=== PATIENT | female | born 1930 | race Caucasian/White ===

== ENCOUNTER 2017-11-18 09:05 | Emergency (ER) | payer MEDICARE, OTHER ==
[~2017-11-18] VITALS: Ht 157.5 cm; Wt 68.5 kg
[~2017-11-18 09:05] MED LIST: AMARYL4 MG PO; ARICEPT ODT5 MG PO; ARICEPT5 MG PO; ARTHROTEC EC 51 EACH PO; ATIVAN0.5 MG PO; CARAFATE1 GM PO; DEPAKOTE125 MG PO; HYDROXYZINE HCL10 MG PO; LEVOTHYROXINE50 MCG PO; LIPITOR10 MG PO; MELATONIN 3 MG1 EACH PO; METFORMIN HCL500 MG PO; MINOCYCLINE HCL50 MG PO; MIRALAX17 GM PO; NORCO 5-325 TA1 EACH PO; PANTOPRAZOLE SO40 MG PO; SENOKOT-S TABL1 EACH PO; SEROQUEL25 MG PO; VALIUM2 MG; ZOFRAN2 MG/1 ML IM
--- NOTE | 2017-11-18 10:21 | Diagnostic Imaging Report ---
EXAMINATION: Head and cervical spine CT without contrast. HISTORY: Status post fall, trauma, pain COMPARISON: Head CT and 05/19/2014 TECHNIQUE: Multidetector axial images were obtained without contrast from the foramen magnum to the vertex and through the cervical spine. The images were reconstructed using brain and bone algorithms. Thin section brain images were reformatted into coronal and sagittal planes. HEAD CT FINDINGS: Skull: Left frontal scalp swelling/hematoma without underlying fractures. 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 -Mild periventricular matter hypodensities, nonspecific unremarkable changes. -No mass, hemorrhage or CT evidence of acute vascular insult. Brain volume: Generalized parenchymal volume with mild bilateral medial temporal predominance. Ventricles: No hydrocephalus or displacement. Arteries: No density suggestive of thrombus. Dural sinuses: No abnormal density. Extra-axial spaces: No abnormal density. Foramen magnum: No mass, Chiari malformation, or basilar invagination. Sella: No obvious mass. Paranasal/mastoid sinuses: Imaged portions unremarkable. CERVICAL SPINE CT FINDINGS: Alignment:Normal alignment and lordosis. Soft tissues: Normal. Vertebrae: Normal height and density. No acute fracture, infection or neoplasm. Degenerative changes: C1-C2: Normal. C2-C3: Uncovertebral and facet arthrosis without canal or foraminal stenosis. C3-C4: Bilateral uncovertebral and facet arthrosis without stenosis. C4-C5: Uncovertebral and facet arthrosis mainly on the left without canal or foraminal stenosis. C5-C6: Uncovertebral and facet arthrosis. Mild foraminal stenosis mainly on the left. C6-C7: Uncovertebral and facet arthrosis without canal or foraminal stenosis. C7-T1: Normal. IMPRESSION: Head CT: 1. Left frontal scalp swelling/hematoma without underlying fractures 2. No acute posttraumatic intracranial abnormalities, particularly no hemorrhage. 3. 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 Cervical spine CT: 1. No acute fractures or dislocations. 2. Chronic degenerative changes as described. Note: Acute post traumatic spinal cord, vascular or ligamentous injury cannot adequately be assessed with CT. Signed by: Dr. Livia Ng M.D. on 11/18/2017 10:17 AM
[2017-11-18 10:34] VITALS: BP 140/85
== END 2017-11-18 10:41 | disposition home or self-care (01) ==
LOC: ER 09:05
DX: S00.83XA Contusion of other part of head, initial encounter (principal); S00.81XA Abrasion of other part of head, initial encounter; W06.XXXA Fall from bed, initial encounter; Y93.84 Activity, sleeping; Y92.128 Other place in nursing home as the place of occurrence of the external cause; F03.90 Unspecified dementia, unspecified severity, without behavioral disturbance, psychotic disturbance, mood disturbance, and anxiety; I10 Essential (primary) hypertension; E11.9 Type 2 diabetes mellitus without complications; E78.5 Hyperlipidemia, unspecified
CPT/HCPCS: 70450; 72125; 99283

== ENCOUNTER 2019-11-15 07:44 | Observation (INO) | payer MEDICARE, OTHER ==
[~2019-11-15] VITALS: Ht 154.9 cm; Wt 78.9 kg
[2019-11-15] MEDS ORDERED: ONDANSETRON HCL INJ 2MG/ML 2ML 2 MG/ML VIAL IV NR (07:54)
[2019-11-15] MEDS ORDERED: SODIUM CHLORIDE 0.9% 500ML 500 ML IV ONE (08:00)
--- NOTE | 2019-11-15 08:25 | NUR ---
Pt reports is 1930 per patient's daughter Mrs. Alex Kirkpatrick (POA) she states that there was a mix up several years ago, pt lost her certificate and stated that when she received it it had 1930, daughter states "It was changed by her mother." All paperwork from [facility] states 1930, pt daughter verified that that has been the she uses, pt was treated here several times over the past years with 1930.
[2019-11-15] MEDS ORDERED: PANTOPRAZOLE 40 MG 10ML VIAL IV NR (08:30)
--- NOTE | 2019-11-15 09:17 | Diagnostic Imaging Report ---
CT BRAIN WO HISTORY: Syncope COMPARISON: Head CT 11/18/2017 Technique: Noncontrast axial scans were obtained from skull base to the vertex. Coronal and sagittal reconstructions obtained from the axial data. One or more of the following dose reduction techniques were used: Automated exposure control, adjustment of the mA and/or kV according to patient size, and/or utilization of iterative reconstruction technique. DISCUSSION: Scalp/Skull: Unremarkable. Brain sulci: Mildly prominent. Ventricles: Compensatory dilatation. Extra-axial spaces: No masses or fluid collections. Carotid siphon calcifications are present. Parenchyma: Mild bilateral deep white matter hypodensity is likely chronic microvascular ischemic change. 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 Dural sinuses: No abnormal densities. Sellar/Suprasellar region: Intact. Skull base: Intact. Incidental findings: None. IMPRESSION: 1. No acute intracranial abnormalities. 2. Old right occipital infarct. 3. Mild supratentorial chronic microvascular ischemic change. Generalized cerebral volume loss. Signed by: Dr. Phill Gaytan M.D. on 11/15/2019 9:14 AM
--- NOTE | 2019-11-15 09:19 | Diagnostic Imaging Report ---
EXAMINATION: CHEST SINGLE (PORTABLE) INDICATION: Syncope COMPARISON: Chest radiograph 08/29/2014 FINDINGS: LINES/TUBES:Left chest pacer. EKG leads overlie the chest. LUNGS:The lung volumes are low. No focal consolidation or pulmonary edema. Persistent elevation of the right hemidiaphragm. Mild left basilar patchy opacities, likely subsegmental atelectasis. Unchanged right midlung calcified granuloma. PLEURA:No pleural effusion or pneumothorax. MEDIASTINUM:The cardiomediastinal silhouette appears normal in size and shape. Atherosclerotic calcifications of the thoracic aorta. BONES/SOFT TISSUES:No acute osseous injury. Increased acromioclavicular interval on the left, also present in 2014, suggests chronic left acromioclavicular injury. Postoperative findings of right rotator cuff repair. ABDOMEN:No free air under the diaphragm. IMPRESSION: Low lung volumes. No focal pneumonia or pulmonary edema. Left basilar opacities, most likely subsegmental atelectasis. Persistent right hemidiaphragm elevation. Signed by: Katarzyna Heard MD on 11/15/2019 9:17 AM
[2019-11-15 09:57] LABS: HEMATOCRIT 43.5 % (34.2-44.1); HEMOGLOBIN 14.3 g/dL (12.0-16.0); MEAN CORPUSCULAR VOLUME 95.2 fL (81-99); RED BLOOD COUNT 4.57 x10e6/uL (3.6-5.1)
[2019-11-15 09:58] LABS: BASOPHILS % 1.1 % (0.0-1.0); EOSINOPHILS % 2.6 % (0.0-6.0); LYMPHOCYTES % 16.5 % (18.0-39.1); MEAN CORPUSCULAR HEMOGLOBIN 31.3 pg (28-32); MEAN CORPUSCULAR HGB CONC 32.9 g/dL (31-35); MONOCYTES % 9.9 % (4.4-11.3); NEUTROPHILS % 69.4 % (38.7-80.0); PLATELET COUNT 311 x10e3/uL (140-360); RED CELL DISTRIBUTION WIDTH 13.5 % (11.7-14.4)
[2019-11-15 09:59] LABS: BASOPHILS # (AUTO) 0.1 (0.0-0.1); EOSINOPHILS # (AUTO) 0.1 (0.0-0.4); LYMPHOCYTES # (AUTO) 0.9 (1.0-3.2); MONOCYTES # (AUTO) 0.5 (0.2-0.8); NEUTROPHILS # (AUTO) 3.8 (2.1-6.9)
[2019-11-15] MEDS ORDERED: ONDANSETRON HCL INJ 2MG/ML 2ML 2 MG/ML VIAL IV PRN (10:15)
[2019-11-15 10:34] LABS: INR 1.1; PARTIAL THROMBOPLASTIN TIME 26.9 seconds (23.8-35.5); PROTHROMBIN TIME 14.5 seconds (11.9-14.5)
[2019-11-15] MEDS ORDERED: AZITHROMYCIN 500MG/NS 250 ML 250 ML IV SCH (11:00)
[2019-11-15] MEDS ORDERED: FAMOTIDINE 20 MG/2 ML VIAL IV SCH (11:00)
[2019-11-15] MEDS ORDERED: CEFEPIME 1GM/NS 0.9% 50 ML 50 ML IV SCH (12:00)
[2019-11-15 12:45] LABS: ALBUMIN 3.3 g/dL (3.5-5.0); ALBUMIN/GLOBULIN RATIO 0.9 (0.8-2.0); ANION GAP 12.7 mmol/L (8-16); CALCIUM 9.3 mg/dL (8.4-10.2); CREATININE, SERUM 1.7 mg/dL (0.57-1.11); MAGNESIUM 1.9 MG/DL (1.3-2.1); POTASSIUM 4.7 mmol/L (3.5-5.1)
[2019-11-15 12:52] LABS: CREATINE KINASE MB 1.4 ng/mL (0-5.0)
[2019-11-15] MEDS ORDERED: LORAZEPAM 0.5 MG TAB PO PRN (14:15)
[2019-11-15] MEDS ORDERED: HYDROXYZINE HCL 10 MG TAB PO PRN (14:15)
[2019-11-15] MEDS ORDERED: QUETIAPINE FUMARATE 25 MG TAB PO PRN ×2 (14:15)
[2019-11-15 14:25] LABS: CLARITY,URINE SL CLOUDY (CLEAR); COLOR,URINE YELLOW (YELLOW); LEUKOCYTE ESTERASE ,URINE SMALL (NEGATIVE); NITRITE,URINE NEGATIVE (NEGATIVE); PROTEIN,URINE DIPSTICK 1+ (NEGATIVE)
[2019-11-15 14:26] LABS: KETONES,URINE NEGATIVE (NEGATIVE); URINE UROBILINOGEN 0.2 mg/dL (0.2 - 1)
[2019-11-15 14:27] LABS: BILIRUBIN,URINE NEGATIVE (NEGATIVE)
[2019-11-15 14:32] LABS: BACTERIA,URINE MANY /HPF; EPITHELIAL CELLS,URINE MODERATE /LPF
[2019-11-15] MEDS ORDERED: ACETAMINOPHEN 325 MG TAB PO PRN (14:45)
[2019-11-15] MEDS ORDERED: ONDANSETRON HCL INJ 2MG/ML 2ML 2 MG/ML VIAL IM PRN (15:00)
--- NOTE | 2019-11-15 15:15 | NUR ---
RCD PT FROM ER BY BED PT IS ALERT AND ORIENTED VITALS CHECKED PT RESTING ON BED ADMISSION ASSESSMENT AND HISTORY DONE IV PATENT BY SALINE FLUSH AND CONNECTED IV NS 100 ML /HR FAMILY AT BED SIDE INSTRUCTED THE PT AND FAMILY REGARDING HOSPITAL POLICY AND ROUTINE BED LOW AND LOCKED CALL LIGHT IN REACH
--- NOTE | 2019-11-15 15:38 | Diagnostic Imaging Report ---
EXAM: CT Chest WITHOUT intravenous contrast 11/15/2019 2:28 PM INDICATION: Lung nodule COMPARISON: Chest radiograph of the same day TECHNIQUE: Chest was scanned utilizing a multidetector helical scanner from the lung apex through the level of the adrenal glands without administration of IV contrast. Coronal and sagittal reformations were obtained. Routine protocol was performed. IV CONTRAST: None RADIATION DOSE: Total DLP: 465.2 mGy*cm. Dose modulation, iterative reconstruction, and/or weight based adjustment of the mA/kV was utilized to reduce the radiation dose to as low as reasonably achievable. COMPLICATIONS: None FINDINGS: LINES/ TUBES: Left chest pacer. LUNGS AND AIRWAYS: The central airways are patent. No focal consolidation or pulmonary edema. 10 mm right upper lobe calcified granuloma, essentially unchanged compared to radiographs dating back to 05/19/2014. Dependent left greater than right bibasilar subsegmental atelectasis. PLEURA: The pleural spaces are clear. HEART AND MEDIASTINUM: The thyroid gland is normal. No supraclavicular or is not a lymphadenopathy. Small calcified right hilar lymph nodes. The heart is not enlarged. No pericardial effusion. Scattered coronary artery atherosclerotic calcifications. Atherosclerotic calcifications involve the thoracic aorta and proximal great vessels. UPPER ABDOMEN: No acute findings. Scattered calcified granulomas throughout the liver and spleen. Small sliding hiatal hernia. BONES: No acute osseous injury. No suspicious lytic or blastic lesions. Degenerative changes of the visualized spine. SOFT TISSUES: Unremarkable. IMPRESSION: No focal pneumonia or pulmonary edema. Sequela of prior granulomatous disease including a right upper lobe calcified granuloma (unchanged dating back to 2013), right calcified hilar lymph nodes, and calcified granulomas in the liver and spleen. Scattered atherosclerotic calcifications including of the coronary arteries. Signed by: Katarzyna Heard MD on 11/15/2019 3:35 PM
[2019-11-15 16:05] VITALS: BP 127/59
[2019-11-15] MEDS: SUCRALFATE 1 GM TAB PO SCH (16:30)
[2019-11-15] MEDS: DONEPEZIL HCL 5 MG TAB PO SCH (16:30)
[2019-11-15] MEDS: SODIUM CHLORIDE 0.9% 1000ML 1,000 ML IV SCH (16:30)
[2019-11-15] MEDS ORDERED: MISOPROSTOL PO SCH (17:00)
[2019-11-15] MEDS ORDERED: DICLOFENAC SODIUM PO SCH (17:00)
[2019-11-15] MEDS ORDERED: METFORMIN HCL 500 MG TAB PO SCH (17:00)
[2019-11-15] MEDS: DIVALPROEX SODIUM 125 MG TABDR...ER PO SCH (17:00)
[2019-11-15] MEDS ORDERED: [UNRECOGNIZED DRUG - OTHER] PO SCH (17:00)
[2019-11-15] MEDS: MINOCYCLINE HCL 50 MG CAP PO SCH (17:22)
[2019-11-15 17:33] VITALS: BP 127/59
[2019-11-15 17:46] VITALS: BP 127/59
[2019-11-15 18:40] LABS: CREATINE KINASE MB 1.4 ng/mL (0-5.0)
--- NOTE | 2019-11-15 18:41 | NUR ---
PT RESTING ON BED BED SIDE REPORT GIVEN TO ONCOMING NURSE
--- OUTSIDE RECORDS SUMMARY | 2019-11-15 19:34 | XMS REPORT ---
Author Author [facility] Address Unknown Phone Unavailable Care Team Providers Care Aircraft Instrument Tester Name Role Phone JOLEEN SANDERS Unavailable Unavailable Kain WOOD Unavailable Unavailable Problems This patient has no known problems. Allergies, Adverse Reactions, Alerts This patient has no known allergies or adverse reactions. Medications This patient has no known medications. Results Test Description Test Time Test Comments Text Results Atomic Results Result Comments CT CHEST WO 2019-11-15 15:30:00 [place] [address] Patient Name: SERGIO PARISH MR #: [id number] : 1930 Age/Sex: 89/F Req #: [id number] Adm Physician: JOLEEN SANDERS MD Ordered by: JOLEEN SANDERS MD Report #: [id number] Location: [facility] Room/Bed: [place] [address] Procedure: [id number] CT/CT CHEST WO Exam Date: 11/15/19 Exam Time: 1500 REPORT STATUS: Signed EXAM: CT Chest WITHOUT intravenous contrast 11/15/2019 2:28 PM INDICATION: Lung nodule COMPARISON: Chest radiograph of the same day TECHNIQUE: Chest was scanned utilizing a multidetector helical scanner from the lung apex through the level of the adrenal glands without administration of IV contrast. Coronal and sagittal reformations were obtained. Routine protocol was performed. IV CONTRAST: None RADIATION DOSE: Total DLP: 465.2 mGy*cm. Dose modulation, iterative reconstruction, and/or weight based adjustment of the mA/kV was utilized to reduce the radiation dose to as low as reasonably achievable. COMPLICATIONS: None FINDINGS: LINES/ TUBES: Left chest pacer. LUNGS AND AIRWAYS: The central airways are patent. No focal consolidation or pulmonary edema. 10 mm right upper lobe calcified granuloma, essentially unchanged compared to radiographs dating back to 05/19/2014. Dependent left greater than right bibasilar subsegmental atelectasis. PLEURA: The pleural spaces are clear. HEART AND MEDIASTINUM: The thyroid gland is normal. No supraclavicular or is not a lymphadenopathy. Small calcified right hilar lymph nodes. The heart is not enlarged. No pericardial effusion. Scattered coronary artery atherosclerotic calcifications. Atherosclerotic calcifications involve the thoracic aorta and proximal great vessels. UPPER ABDOMEN: No acute findings. Scattered calcified granulomas throughout the liver and spleen. Small sliding hiatal hernia. BONES: No acute osseous injury. No suspicious lytic or blastic lesions. Degenerative changes of the visualized spine. SOFT TISSUES: Unremarkable. IMPRESSION: No focal pneumonia or pulmonary edema. Sequela of prior granulomatous disease including a right upper lobe calcified granuloma (unchanged dating back to 2013), right calcified hilar lymph nodes, and calcified granulomas in the liver and spleen. Scattered atherosclerotic calcifications including of the coronary arteries. Signed by: Neelam Woods MD on 11/15/2019 3:35 PM Dictated By: NEELAM WOODS MD 1535 Transcribed By: ANDRIY on 11/15/19 1535 COPY TO: JOLEEN SANDERS MD CHEST SINGLE (PORTABLE) 2019-11-15 09:14:00 [place] [address] Patient Name: SERGIO PARISH MR #: [id number] : 1930 Age/Sex: 89/F Req #: [id number] Adm Physician: Ordered by: LORNA HOSKINS MD Report #: [id number] Location: ER Room/Bed: Procedure: [id number] DX/CHEST SINGLE (PORTABLE) Exam Date: 11/15/19 Exam Time: 0853 REPORT STATUS: Signed EXAMINATION: CHEST SINGLE (PORTABLE) INDICA TION: Syncope COMPARISON: Chest radiograph 08/29/2014 FINDINGS: LINES/TUBES:Left chest pacer. EKG leads overlie the chest. LUNGS:The lung volumes are low. No focal consolidation or pulmonary edema. Persistent elevation of the right hemidiaphragm. Mild left basilar patchy opacities, likely subsegmental atelectasis. Unchanged right midlung calcified granuloma. PLEURA:No pleural effusion or pneumothorax. MEDIASTINUM:The cardiomediastinal silhouette appears normal in size and shape. Atherosclerotic calcifications of the thoracic aorta. BONES/SOFT TISSUES:No acute osseous injury. Increased acromioclavicular interval on the left, also present in 2013, suggests chronic left acromioclavicular injury. Postoperative findings of right rotator cuff repair. ABDOMEN:No free air under the diaphragm. IMPRESSION: Low lung volumes. No focal pneumonia or pulmonary edema. Left basilar opacities, most likely subsegmental atelectasis. Persistent right hemidiaphragm elevation. Signed by: Neelam Woods MD on 11/15/2019 9:17 AM Dictated By: NEELAM WOODS MD 6 Transcribed By: ANDRIY on 11/15/19916 COPY TO: LORNA HOSKINS MD CT BRAIN WO 2019-11-15 09:13:00 [place] [address] Patient Name: SERGIO PARISH MR #: [id number] : 1930 Age/Sex: 89/F Req #: [id number] Adm Physician: Ordered by: LORNA HOSKINS MD Report #: [id number] Location: ER Room/Bed: Procedure: [id number] CT/CT BRAIN WO Exam Date: 11/15/19 Exam Time: 829 REPORT STATUS: Signed CT BRAIN WO HISTORY: Syncope COMPARISON: Head CT 11/18/2017 Technique: Noncontrast axial scans were obtained from skull base to the vertex. Coronal and sagittal reconstructions obtained from the axial data. One or more of the following dose reduction techniques were used: Automated exposure control, adjustment of the mA and/or kV according to patient size, and/or utilization of iterative reconstruction technique. DISCUSSION: Scalp/Skull: Unremarkable. Brain sulci: Mildly prominent. Ventricles: Compensatory dilatation. Extra-axial spaces: No masses or fluid collections. Carotid siphon calcifications are present. Parenchyma: Mild bilateral deep white matter hypodensity is likely chronic microvascular ischemic change. There is an old infarct in the medial right occipital lobe (right [employer] SUPERINTENDENT territory) Otherwise, no masses, hemorrhage, or large vascular territory acute infarct. Dural sinuses: No abnormal densities. Sellar/Suprasellar region: Intact. Skull base: Intact. Incidental findings: None. IMPRESSION: 1. No acute intracranial abnormalities. 2. Old right occipital infarct. 3. Mild supratentorial chronic microvascular ischemic change. Generalized cerebral volume loss. Signed by: Dr. Phill Gaytan M.D. on 11/15/2019 9:14 AM Dictated By: PHILL GAYTAN MD 3 Transcribed By: ANDRIY on 11/15/19913 COPY TO: LORNA HOSKINS MD CT BRAIN WO [place] [address] Patient Name: SERGIO PARISH MR #: [id number] : 1930 Age/Sex: 87/F Req #: [id number] Adm Physician: Ordered by: DAVIDA WOOD MD Report #: [id number] Location: ER Room/Bed: Procedure: [id number] CT/CT BRAIN WO Exam Date: 11/18/17 Exam Time: 0940 REPORT STATUS: Signed EXAMINATION: Head and cervical spine CT without contrast. HISTORY: Status post fall, trauma, pain COMPARISON: Head CT and 05/19/2014 TECHNIQUE: Multidetector axial images were obtained without contrast from the foramen magnum to the vertex and through the cervical spine. The images were reconstructed using brain and bone algorithms. Thin section brain images were reformatted into coronal and sagittal planes. HEAD CT FINDINGS: Skull: Left frontal scalp swelling/hematoma without underlying fractures. 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 -Mild periventricular matter hypodensities, nonspecific unremarkable changes. -No mass, hemorrhage or CT evidence of acute vascular insult. Brain volume: Generalized parenchymal volume with mild bilateral medial temporal predominance. Ventricles: No hydrocephalus or displacement. Arteries: No density suggestive of thrombus. Dural sinuses: No abnormal density. Extra-axial spaces: No abnormal density. Foramen magnum: No mass, Chiari malformation, or basilar invagination. Sella: No obvious mass. Paranasal/mastoid sinuses: Imaged portions unremarkable. CERVICAL SPINE CT FINDINGS: Alignment:Normal alignment and lordosis. Soft tissues: Normal. Vertebrae: Normal height and density. No acute fracture, infection or neoplasm. Degenerative changes: C1-C2: Normal. C2-C3: Uncovertebral and facet arthrosis without canal or foraminal stenosis. C3-C4: Bilateral uncovertebral and facet arthrosis without stenosis. C4-C5: Uncovertebral and facet arthrosis mainly on the left without canal or foraminal stenosis. C5-C6: Uncovertebral and facet arthrosis. Mild foraminal stenosis mainly on the left. C6-C7: Uncovertebral and facet arthrosis without canal or foraminal stenosis. C7-T1: Normal. IMPRESSION: Head CT: 1. Left frontal scalp swelling/hematoma without underlying fractures 2. No acute posttraumatic intracranial abnormalities, particularly no hemorrhage. 3. 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 Cervical spine CT: 1. No acute fractures or dislocations. 2. Chronic degenerative changes as described. Note: Acute post traumatic spinal cord, vascular or ligamentous injury cannot adequately be assessed with CT. Signed by: Dr. Livia Ng M.D. on 11/18/2017 10:17 AM Dictated By: LIVIA NG MD 1017 Transcribed By: ANDRIY on 11/18/17 1017 COPY TO: DAVIDA WOOD MD CT CERVICAL SPINE WO [place] [address] Patient Name: SERGIO PARISH MR #: [id number] : 1930 Age/Sex: 87/F Req #: [id number] Adm Physician: Ordered by: DAVIDA WOOD MD Report #: [id number] Location: ER Room/Bed: Procedure: [id number] CT/CT CERVICAL SPINE WO Exam Date: 11/18/17 Exam Time: 0940 REPORT STATUS: Signed EXAMINATION: Head and cervical spine CT without contrast. HISTORY: Status post fall, trauma, pain COMPARISON: Head CT and 05/19/2014 TECHNIQUE: Multidetector axial images were obtained without contrast from the foramen magnum to the vertex and through the cervical spine. The images were reconstructed using brain and bone algorithms. Thin section brain images were reformatted into coronal and sagittal planes. HEAD CT FINDINGS: Skull: Left frontal scalp swelling/hematoma without underlying fractures. 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 - Mild periventricular matter hypodensities, nonspecific unremarkable changes. - No mass, hemorrhage or CT evidence of acute vascular insult. Brain volume: Generalized parenchymal volume with mild bilateral medial temporal predominance. Ventricles: No hydrocephalus or displacement. Arteries: No density suggestive of thrombus. Dural sinuses: No abnormal density. Extra-axial spaces: No abnormal density. Foramen magnum: No mass, Chiari malformation, or basilar invagination. Sella: No obvious mass. Paranasal/mastoid sinuses: Imaged portions unremarkable. CERVICAL SPINE CT FINDINGS: Alignment:Normal alignment and lordosis. Soft tissues: Normal. Vertebrae: Normal height and density. No acute fracture, infection or neoplasm. Degenerative changes: C1-C2: Normal. C2-C3: Uncovertebral and facet arthrosis without canal or foraminal stenosis. C3-C4: Bilateral uncovertebral and facet arthrosis without stenosis. C4-C5: Uncovertebral and facet arthrosis mainly on the left without canal or foraminal stenosis. C5-C6: Uncovertebral and facet arthrosis. Mild foraminal stenosis mainly on the left. C6-C7: Uncovertebral and facet arthrosis without canal or foraminal stenosis. C7-T1: Normal.
[2019-11-15 20:00] VITALS: BP 128/56
[2019-11-15 20:05] VITALS: BP 128/56
--- NOTE | 2019-11-15 20:20 | NUR ---
PATIENT RESTING IN BED IN STABLE CONDITION, NO SIGNS OF DISTRESS NOTED. IV FLUIDS ARE RUNNING AT ORDERED RATE AND PATIENT VOICES NO PAIN AT THIS TIME. BED IS IN LOWEST POSITION, BOTH SIDE RAILS ARE UP, BED ALARM IS ON, CALL LIGHT IS WITHIN EASY REACH, WILL CONTINUE TO MONITOR.
[2019-11-15] MEDS: MELATONIN 3 MG TAB PO SCH (20:23)
[2019-11-15] MEDS: ATORVASTATIN 10 MG TAB PO SCH (20:23)
--- NOTE | 2019-11-15 22:05 | History and Physical ---
HISTORY OF PRESENT ILLNESS: The patient is an 89-year-old female past medical history positive for diabetes, hypertension, dementia, came here with syncopal episode. Apparently, she was found to be in the floor by the nursing staff. REVIEW OF SYSTEMS: CARDIOVASCULAR chest pain or palpitation. RESPIRATORY: No shortness of breath. No cough. GASTROINTESTINAL: No nausea, vomiting, or diarrhea. GENITOURINARY: No frequency or dysuria. ALLERGIES: SHE IS ALLERGIC TO PENICILLIN, SINEMET, ASPIRIN, MORPHINE, TRAMADOL. SOCIAL HISTORY: She does not smoke. She does not drink. PAST MEDICAL HISTORY: Positive for diabetes, sick sinus syndrome, status post permanent pacemaker placement, and dementia. PHYSICAL EXAMINATION: HEART: Showed regular rhythm. Normal S1, S2 sound. LUNGS: Clear bilaterally. ABDOMEN: Soft. EXTREMITIES: Show no evidence of cyanosis or hematoma. LABORATORY DATA: On the BMP; sodium 139, potassium 4.7, chloride 109, CO2 of 22, BUN 23, creatinine , GFR 28, glucose 164, calcium 9.3, magnesium 1.9, total bilirubin 0.3, AST 25, ALT 25, alkaline phosphatase 41, creatine kinase 131, CK-MB 1.40, troponin 0.028. Beta natriuretic peptide 50.6. Total protein 7.0, albumin 3.3, and globulin 3.7. Coagulation showed PT 14.5, INR 1.10, PTT 26.9. Influenza A and B completely negative. On the CBC, white blood count 7.46, hemoglobin 14.3, hematocrit 43.5, platelet count 311. She had a chest x-ray, which showed no pneumonia. CT of the head shows no acute abnormalities, old right occipital infarct, mild supratentorial chronic microvascular ischemic changes, generalized cerebral volume loss. Chest x-ray showed lower lung volumes. No focal pneumonia. Pulmonary edema. Left basilar opacities most likely subsegmental atelectasis. Persistent right hemidiaphragm elevation. Blood culture and urine culture have been sent and report is pending. IMPRESSION: 1. Syncopal episode. 2. Vomiting. 3. 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 4. Chronic renal insufficiency, stage IV. 5. Sick sinus syndrome, status post permanent pacemaker placement. 6. Acute . PLAN OF TREATMENT: Continue Zithromax 500 mg IV once a day. Cefepime 1 g IV twice a day, which we are going to change to . She was at correction, so we going to continue that. Normal saline will continue 100 mL an hour, Lipitor 10 mg daily, Aricept 5 mg at bedtime. Pepcid, we are going to discontinue. Continue hydroxyzine 10 mg three times a day as needed for itching, levothyroxine 50 mcg daily, lorazepam 0.5 mg q.6 hours as needed for anxiety, melatonin 3 mg at bedtime, metformin is going to be discontinued also because of chronic renal insufficiency. Continue minocycline 100 mg twice a day. Continue Zofran 4 mg IV q.4 hours as needed for nausea, vomiting. Protonix 40 mg daily. Seroquel 12.5 mg at bedtime p.r.n. for sleep, Seroquel 12.5 mg three times a day as needed for agitation, Carafate 1 g before meals, diclofenac sodium is going to be discontinued also because of renal insufficiency. Continue MiraLAX 17 g daily. We are going to start her on Tylenol for pain or fever 325 mg every 4 hours as needed for pain or fever. We are going to also order orthostatic vital signs because of the syncopal episodes to make sure that the patient has no orthostatic. We are going to repeat a BMP tomorrow. Dr. Tsai has been consulted from the Neurology point of view because of syncope and Dr. Love to check on the pacemaker. She is going to be in telemetry. We are going to also do a CT of the chest because the patient's family was telling me that she was found to have a nodule in the lungs. She was supposed to have a CT of the chest. We are going to order a CT of the chest without contrast. The case has been discussed with the daughter at bedside. MD NAUN Maynard/FLORENTINO /[id number]
[2019-11-16] VITALS (8 sets, daily range): BP systolic 116–128; BP diastolic 59–67
[2019-11-16] MEDS: SODIUM CHLORIDE 0.9% 1000ML 1,000 ML IV SCH (04:06)
[2019-11-16 05:06] LABS: BASOPHILS % 0.9 % (0.0-1.0); EOSINOPHILS # (AUTO) 0.1 (0.0-0.4); EOSINOPHILS % 2.5 % (0.0-6.0); HEMATOCRIT 36.4 % (34.2-44.1); HEMOGLOBIN 11.7 g/dL (12.0-16.0); LYMPHOCYTES # (AUTO) 1.2 (1.0-3.2); LYMPHOCYTES % 27.7 % (18.0-39.1); MEAN CORPUSCULAR HGB CONC 32.1 g/dL (31-35); MEAN CORPUSCULAR VOLUME 96.3 fL (81-99); MONOCYTES # (AUTO) 0.5 (0.2-0.8); MONOCYTES % 12.1 % (4.4-11.3); NEUTROPHILS # (AUTO) 2.5 (2.1-6.9); NEUTROPHILS % 56.4 % (38.7-80.0); PLATELET COUNT 258 x10e3/uL (140-360); RED BLOOD COUNT 3.78 x10e6/uL (3.6-5.1); RED CELL DISTRIBUTION WIDTH 13.4 % (11.7-14.4)
[2019-11-16 05:38] LABS: ALBUMIN 2.8 g/dL (3.5-5.0); ALBUMIN/GLOBULIN RATIO 0.8 (0.8-2.0); ANION GAP 12.7 mmol/L (8-16); CALCIUM 8.4 mg/dL (8.4-10.2); CHOL/HDL RATIO 5.1 (3.0-3.6); CREATININE, SERUM 1.65 mg/dL (0.57-1.11); POTASSIUM 3.7 mmol/L (3.5-5.1)
[2019-11-16 06:00] LABS: CREATINE KINASE MB 1.9 ng/mL (0-5.0)
[2019-11-16] MEDS: MINOCYCLINE HCL 50 MG CAP PO SCH (06:48)
[2019-11-16] MEDS: LEVOTHYROXINE SODIUM 50 MCG TAB PO SCH (06:48)
--- NOTE | 2019-11-16 07:00 | NUR ---
BEDSIDE SHIFT REPORT RECEIVED FROM THE [employer] ATTENDANT RN. EDUCATED PT ABOUT FALL PRECAUTIONS. CALL LIGHT WITH IN EASY REACH. INSTRUCTED PT TO USE CALL LIGHT FOR ALL THE NEEDS. PT VERBALIZED UNDERSTANDING. BED IS LOW AND LOCKED. SIDE RAILS X2. BED ALARM IS ON. PT DENIES NEEDS AT THIS TIME.
[2019-11-16] MEDS: SUCRALFATE 1 GM TAB PO SCH ×3 (08:42→16:53)
[2019-11-16] MEDS: DIVALPROEX SODIUM 125 MG TABDR...ER PO SCH ×2 (08:43→16:53)
[2019-11-16] MEDS: PANTOPRAZOLE SOD 40 MG TABEC PO SCH (08:43)
[2019-11-16] MEDS ORDERED: ASPIRIN 81 MG ENTERIC COATED PO SCH (09:00)
[2019-11-16] MEDS ORDERED: CEFTRIAXONE SOD 1 GM/NS 50 ML 50 ML IV SCH (09:00)
[2019-11-16] MEDS ORDERED: POLYETHYLENE GLYCOL 3350 17 GM PACK PO PRN (09:00)
--- NOTE | 2019-11-16 10:00 | NUR ---
PT HAS NO IV ACCESS. MULTIPLE ATTEMPTS TO START THE IV BY THIS RN AND DIGITAL MEDIA DESIGNER. PAGED DR. SANDERS AND INFORMED THE SAME.
--- NOTE | 2019-11-16 10:06 | NUR ---
SPOKE WITH PT AND DAUGHTER IN ROOM, LET HER KNOW THE DOCTOR STATES MOST LIKELY TO RETURN TO [facility] TOMORROW, SHE STATES THAT YES THAT IS THE PLAN. DAUGHTER RILEY STATES SHE MISSED THE DOCTOR THIS MORNING AND HAS 3 QUESTIONS 1, PACEMAKER, 2, NODULE AND 3 CATSCAN RESULTS. LET NURSE KNOW SHE WOULD LIKE UPDATES AND COULD HE GO DISCUSS OR HAVE MD CALL HER. FAXED CLINICALS TO [phone].
--- NOTE | 2019-11-16 10:30 | NUR ---
SWITCH IV ABX TO PO PER DR. SANDERS. DR AWARE ABOUT NO IV ACCESS. D/C PT TOMORROW PER THE DR. MARINO WITH NO IV ACCESS.
--- NOTE | 2019-11-16 10:48 | Progress Note ---
DATE: 11/16/2019 Internal Medicine Progress Note SUBJECTIVE: The patient is doing well. No significant complaint. PHYSICAL EXAMINATION: VITAL SIGNS: Blood pressure 125/61, temperature 96.0, heart rate 76 per minute, respiratory rate 24 per minute, oxygen saturation 98%. HEART: Regular rhythm. Normal S1, S2 sound. LUNGS: Clear bilaterally. ABDOMEN: Soft. EXTREMITIES: Show no evidence of cyanosis or hematoma. LABORATORY DATA: On the CMP; sodium 141, potassium 3.7, chloride 109 CO2 23, BUN is 22, creatinine 1.65, GFR is 29, glucose 120, magnesium is 1.9, total bilirubin 0.2, AST 16, ALT 19, alkaline phosphatase 42. Creatine kinase 93, CK-MB 1.90, troponin 0.019 x3. Troponin x3 has been negative 0.028, 0.020 have been the other troponins. Beta natriuretic peptide 50.6. Total protein 6.3, albumin 2.8, globulin 3.5, albumin globulin ratio 0.8. Triglycerides are 116, cholesterol 149, LDL cholesterol 97, HDL cholesterol 29, cholesterol/HDL ratio is 5.1. She had influenza A and B done test, which is negative for antigen. Blood culture has been done, which report is pending. A urine culture showed gram negative bacillus 100,000 colonies, we are waiting for the final report. FINAL IMPRESSION: 1. Syncopal episode. 2. Vomiting, which is resolved. 3. 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 4. Chronic renal failure stage 4. 5. Sick sinus syndrome, status post permanent pacemaker placement. 6. Acute bronchitis. PLAN OF TREATMENT: We are going to start her on Rocephin 1 g IV daily. We are going to discontinue IV fluids. Continue rest of the home medications, which include Tylenol 325 mg q.4 hours as needed for pain or fever, aspirin 81 mg daily, Lipitor 10 mg daily, Depakote 125 mg twice a day, 5 mg at bedtime, hydroxyzine 10 mg three times a day as needed for itching, levothyroxine 50 mcg daily, Lorazepam 0.5 mg q.6 hours as needed for anxiety, melatonin 3 mg at bedtime, metformin has been discontinued because of chronic renal failure, continue Zofran 4 mg IM q.6 hours as needed for nausea, Protonix 40 mg daily, MiraLAX 17 g daily p.r.n. for constipation. Seroquel 12.5 mg at bedtime as needed for sleep. Seroquel 12.5 mg three times as needed for agitation, Carafate 1 g before meals. Tentative discharge is tomorrow. Cardiology consult with Dr. Granger has been requested. The family wanted evaluation of pacemaker. CT of the chest show granulomatous disease. No other significant findings. We are going to order also physical therapy for going back to the residential. MD NAUN Maynard/FLORENTINO /[id number]
--- NOTE | 2019-11-16 11:00 | NUR ---
PAGEKathy SANDERS REGARDING PT D/C PLAN. D/C TOMORROW PER THE
--- NOTE | 2019-11-16 11:30 | NUR ---
PT IS ALLERGIC TO ASPIRIN. PAGED DR. OROZCO AND PHARMACY INFORMED THE SAME.
[2019-11-16] MEDS: TRIMETHOPRIM/SULFAMETHOXAZOLE 160-800 MG TAB PO SCH ×2 (12:01→20:59)
[2019-11-16] MEDS: CLOPIDOGREL BISULFATE 75 MG TAB PO SCH (12:01)
--- NOTE | 2019-11-16 12:05 | NUR ---
PAGED DR. SANDERS REGARDING PT BLOOD SUGAR 228. WAITING FOR THE CALL BACK.
--- NOTE | 2019-11-16 12:18 | Consultation ---
DATE OF CONSULTATION: 11/16/2019 Cardiology Consultation REASON FOR CONSULTATION: Syncope. 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 No family is at bedside. History is only taken from the medical record, as the patient has severe dementia and cannot provide me the exact details of her presenting symptoms or her past medical history. REVIEW OF SYSTEMS: Unable to be obtained due to severe dementia. PAST MEDICAL HISTORY: As stated above. PAST SURGICAL HISTORY: Pacemaker implantation. PAST FAMILY HISTORY: Noncontributory to current illness. SOCIAL HISTORY: No illicit drug, alcohol, or tobacco use. ALLERGIES: PENICILLIN, SINEMET, ASPIRIN, MORPHINE, AND TRAMADOL. MEDICATIONS: Please see medication reconciliation form. PHYSICAL EXAMINATION: VITAL SIGNS: Temperature is 97.9, heart rate is 73, respirations are 18, blood pressure is 125/61, and oxygen saturation is 99% on 2 L nasal cannula. GENERAL: She is well-appearing, in no apparent distress, elderly woman. HEAD: Normocephalic and atraumatic. EYES: The extraocular muscles are intact. Conjunctivae are clear. NECK: No JVD. No bruits. CARDIOVASCULAR: She has regular rate and rhythm. LUNGS: Diminished breath sounds at bases. ABDOMEN: Soft, nontender, and nondistended. EXTREMITIES: No edema. VASCULAR: Diminished pulses. SKIN: Warm, dry, and intact. NEUROLOGIC: The patient is confused, not oriented. Moving all extremities spontaneously. LABORATORY DATA: Reviewed. White count is 4.4 and hemoglobin is 11.7. Creatinine is 1.6 and potassium 3.7. Troponins negative x3. BNP is normal at 50. Telemetry monitoring shows ventricular paced rhythm. CT of the head showed no intracranial abnormalities. Old right occipital infarct, chronic microvascular changes, generalized cerebral volume loss. Chest x-ray shows low lung volumes. No pneumonia or pulmonary edema. IMPRESSION: 1. Possible syncopal episode. 2. Diabetes mellitus. 3. Chronic kidney disease. 4. Third-degree AV block, status post permanent pacemaker implantation. RECOMMENDATIONS: The patient was found down in her nursing facility by staff. Unclear what events led to the fall. Hard to ascertain if she actually lost consciousness. The patient is unable to provide us any details of her medical history or her presenting symptoms. On review of her medication list as an outpatient, it appears that she is on multiple medications that could cause altered mental status and lethargy. Of note, she is on hydroxyzine, lorazepam, melatonin, and Seroquel. Recommend Neurology consultation as well. Likely, we will need to discontinue most of these medications. In regard to her heart, we will have the pacemaker interrogated. We will only continue aspirin at this point in time. Otherwise, we will continue along with you. DO MIGUEL ÁNGEL Carmona/FLORENTINO /[id number]
[2019-11-16] MEDS ORDERED: DEXTROSE 50% SYRINGE 50 ML IV PRN (13:15)
[2019-11-16] MEDS: GLIMEPIRIDE 2 MG TAB PO SCH (13:23)
[2019-11-16 14:23] LABS: CREATINE KINASE MB 2.4 ng/mL (0-5.0)
[2019-11-16] MEDS: ALBUTEROL SULF 0.083% NEB SOLN 3 ML NEB NEB PRN ×2 (15:24→19:20)
[2019-11-16] MEDS: DONEPEZIL HCL 5 MG TAB PO SCH (16:53)
[2019-11-16] MEDS: INSULIN REGULAR, HUMAN 100 UNIT/1 ML 3ML VIAL SQ SCH ×2 (17:10→21:00)
--- NOTE | 2019-11-16 18:25 | Consultation ---
DATE OF CONSULTATION: 11/16/2019 Neurology Consultation HISTORY OF PRESENT ILLNESS: Ms. Monahan is an 89-year-old female with history of dementia, hyperlipidemia, hypertension, and strokes, who comes in with nausea, vomiting, dehydration, and a fall as well as apparent UTI. Mrs. Monahan had some degree of paranoid delusions or perhaps apparently infusion secondary to dementia. No evidence of new focal dysfunction. She states she feels okay. She does not wish to diagnose or discuss with me as she feels that she has been having trouble at this time. She denies any focal neurological deficits. However, CT scan did show an old occipital infarct. She is not on anticoagulation, but having sick sinus syndrome and the reason for this is that she is a high fall risk. PHYSICAL EXAMINATION: VITAL SIGNS: Vital signs however at this time are stable. Heart rate is 86 and appears regular to my exam. Her blood pressure is 142/77. She is afebrile. HEENT: Extraocular muscles are intact. Face is symmetric. Tongue is midline. Speech is clear. Paranoid. NECK: There is no nuchal rigidity. Trachea is midline. EXTREMITIES: Strength in upper extremities 4/5. Lower extremities 4+/5. Reflexes are little bit brisk with upgoing toe on the left. Sensory is grossly intact. CARDIOVASCULAR: Regular rate and rhythm. PULMONARY: Clear. ABDOMEN: Soft, nontender. SKIN: No apparent rashes or edema noted on exam. ASSESSMENT/PLAN: Mrs. Michelle Monahan comes to my attention for history of stroke with irregular heart rhythm. I discussed the case with Cardiology, did not recommend anticoagulation given a high fall risk. The patient does have fall risk, but I will put on baby aspirin, continue on statin, her lipid panel is reassuring. Echocardiogram is warranted, but I will defer to Cardiology. We do know the patient has arrhythmia, but at this time, I do not feel more aggressive anticoagulation is warranted as it increases the risk of complications rather benefit. We will have the patient be seen as an outpatient for further monitoring evaluations of PT, OT, speech and rehabilitation as needed. She does have seems appropriate given her cognitive status. Continue Aricept for dementia. MD JOSE ANTONIO MESA/[place]OR[place]INO /[id number]
--- NOTE | 2019-11-16 19:00 | NUR ---
BEDSIDE SHIFT REPORT GIVEN TO THE CHILDREN'S MINISTER RN. PT DENIED FURTHER NEEDS.
--- NOTE | 2019-11-16 19:15 | NUR ---
Patient received lying in bed. AAO x 2. Patient had no complaints of pain. Respirations even and non-labored on 2L NC. Fall precautions implemented. Patient instructed to call for assistance when needed. Call light within reach.
[2019-11-16] MEDS: MELATONIN 3 MG TAB PO SCH (20:59)
[2019-11-16] MEDS: ATORVASTATIN 10 MG TAB PO SCH (20:59)
[2019-11-17] VITALS: BP 138/63
[2019-11-17 04:00] VITALS: BP 132/63
[2019-11-17] MEDS: LEVOTHYROXINE SODIUM 50 MCG TAB PO SCH (06:01)
--- NOTE | 2019-11-17 07:13 | NUR ---
Patient resting comfortably. Walking rounds done. Bed-side report given to oncoming nurse regarding patient's status.
--- NOTE | 2019-11-17 07:36 | NUR ---
ASSISTED FACILITY DISCHARGE INFORMATION PATIENT HAS BEEN ACCEPTED TO: NAME:SUDHA RAMOS ADDRESS:[address] [place] [address] ACCEPTING MD: RAO ROOM:303A NURSE CALL REPORT TO: [phone] THE FOLLOWING DOCUMENTS MUST ACCOMPANY PATIENT FOR TRANSFER: COPIED CHART: PACKET
[2019-11-17] MEDS: GLIMEPIRIDE 2 MG TAB PO SCH (08:25)
[2019-11-17] MEDS: SUCRALFATE 1 GM TAB PO SCH (08:25)
[2019-11-17] MEDS: PANTOPRAZOLE SOD 40 MG TABEC PO SCH (08:25)
[2019-11-17] MEDS: CLOPIDOGREL BISULFATE 75 MG TAB PO SCH (08:25)
[2019-11-17] MEDS: TRIMETHOPRIM/SULFAMETHOXAZOLE 160-800 MG TAB PO SCH (08:25)
[2019-11-17] MEDS: DIVALPROEX SODIUM 125 MG TABDR...ER PO SCH (08:25)
--- NOTE | 2019-11-17 08:26 | NUR ---
s: no recurrence overnight mild agitation/paranoia vs:97.3 100 138/63 93% awake, oriented to self, not to situation or date eomi perrl no nuchal rigidity irreg irreg cta soft nt abdomen moves all 4 extremities at least 4/5 reflexes diminished right toe upgoing to plantar stim a/p syncope w/ hx of arrythmia and previous stroke very poor/high risk candidate for anticoagultion initiate plavix, continue statin pt ot gait and gall precautions
[2019-11-17] MEDS: INSULIN REGULAR, HUMAN 100 UNIT/1 ML 3ML VIAL SQ SCH (08:30)
[2019-11-17 08:40] VITALS: BP 133/65
[2019-11-17 08:43] VITALS: BP 133/65
[2019-11-17] MEDS ORDERED: ONDANSETRON HCL 4 MG ORAL DISINTEGRATING TAB PO PRN (09:15)
[2019-11-17 12:00] VITALS: BP 116/68
--- NOTE | 2019-11-17 23:56 | Discharge Summary ---
HISTORY: The patient is an 89-year-old female, who has a past medical history positive for diabetes, sick sinus syndrome, status post permanent pacemaker placement, chronic renal failure stage 4, came here because she was found on the floor of the shelter. CT of the head did not show any significant abnormality to explain the syncopal episodes. She had no orthostatic hypotension. She is going to go back to shelter today. PHYSICAL EXAMINATION: HEART: Showed regular rhythm. Normal S1 and S2 sound. LUNGS: Clear bilaterally. ABDOMEN: Soft. FINAL IMPRESSION: 1. Syncope. 2. Vomiting, which is completely resolved. 3. Uncontrolled diabetes mellitus type 2 with diabetic nephropathy. 4. Sick sinus syndrome, status post permanent pacemaker placement. 5. Acute bronchitis. 6. Chronic renal failure stage 4. 7. 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 On the day of discharge, the patient is going to go back to shelter today. We are going to resume the shelter medications. We are going to continue monitoring the blood sugar before meals and at bedtime. Metformin has been discontinued because of the renal insufficiency. The patient is going to be on a diabetic and renal diet. Rest of the medications will be Tylenol 325 mg q.4 hours p.r.n. for pain or fever, albuterol 1 unit via nebulizer every 4 hours as needed for shortness of breath, Lipitor 10 mg daily, Plavix 75 mg daily, Depakote 125 mg twice a day, Aricept 5 mg daily, glimepiride 2 mg daily, hydroxyzine 10 mg three times a day as needed for itching, levothyroxine 50 mcg daily, lorazepam 0.5 mg q.6 hours as needed for anxiety, melatonin 3 mg at bedtime. We are going to discontinue IV Zofran 4 of course. The patient has no vomiting anymore. Continue Protonix 40 mg daily, MiraLAX 17 g daily, Seroquel 12.5 mg as needed for sleep, Seroquel 12.5 mg three times a day as needed for agitation. Continue monitoring blood sugar before meals and at bedtime. Continue Carafate 1 g before meals. Continue Bactrim DS one tablet twice a day because of urinary tract infection and diagnosis of UTI of course. Blood sugar 121. On the BMP; sodium 141, potassium 3.7, chloride 109, CO2 of 23, BUN 22, creatinine 1.65, GFR is 29, which may qualify for chronic kidney disease stage 4, glucose 120, calcium 8.4, total bilirubin 0.2, AST 16, ALT 19, alkaline phosphatase 42. Three sets of cardiac enzymes completely negative. Total protein 6.3, albumin 2.8, albumin and globin ratio 0.8, triglycerides 116, cholesterol 114, LDL 97, HDL 29, cholesterol/HDL ratio 5.1. On the CBC; white count 4.48, hemoglobin 11.7, hematocrit 36.4, platelet count 258,000. Urine culture show 100,000 colonies of gram-negative bacteria. MD NAUN Maynard/[place]OR[place] /[id number]
== END 2019-11-17 14:16 ==
LOC: ER 07:44 → ERHOLD 10:19 → MED/SURG2 16:05
PROVIDERS: ADMIT Internal Medicine; ATTEND Internal Medicine
DX: R55 Syncope and collapse (principal); E78.5 Hyperlipidemia, unspecified; F03.90 Unspecified dementia, unspecified severity, without behavioral disturbance, psychotic disturbance, mood disturbance, and anxiety; J20.9 Acute bronchitis, unspecified; I49.5 Sick sinus syndrome; E11.21 Type 2 diabetes mellitus with diabetic nephropathy; N39.0 Urinary tract infection, site not specified; B96.20 Unspecified Escherichia coli [E. coli] as the cause of diseases classified elsewhere; E11.22 Type 2 diabetes mellitus with diabetic chronic kidney disease; I12.9 Hypertensive chronic kidney disease with stage 1 through stage 4 chronic kidney disease, or unspecified chronic kidney disease; N18.4 Chronic kidney disease, stage 4 (severe); Z88.5 Allergy status to narcotic agent; Z88.0 Allergy status to penicillin; Z88.8 Allergy status to other drugs, medicaments and biological substances; Z95.0 Presence of cardiac pacemaker; Z86.73 Personal history of transient ischemic attack (TIA), and cerebral infarction without residual deficits; Z91.81 History of falling; Z79.84 Long term (current) use of oral hypoglycemic drugs
CPT/HCPCS: 36415 ×3; 70450; 71045; 71250; 80053 ×2; 80061; 81001; 82550 ×2; 82553 ×2; 82948 ×2; 83735; 83880; 84484 ×2; 85025 ×2; 85610; 85730; 87040; 87086; 87186; 87400; 93005; 94640; 96360; 96361; 97116; 97139 ×2; 97162; 99285; C9113; G0378 ×3; J0456; J1817; J2405; J7030 ×2; J7040; S0164 ×2